=== PATIENT | male | born 1945 | race Caucasian/White ===

== ENCOUNTER 2017-08-17 15:05 | Emergency (ER) | payer OTHER ==
[2017-08-17 15:41] VITALS: BP 159/101
--- NOTE | 2017-08-17 17:00 | UC ---
Shoulder Pain HPI - HPI Summary HPI Summary: Pt reports that he slipped this morning in the bathroom and fell from standing and hit left shoulder on toilet. Pt denies hitting head or FOOSH. - History of Current Complaint Chief Complaint: UCUpperExtremity Stated Complaint: LEFT SHOULDER INJURY PT FELL Time Seen by Provider: 08/17/17 16:13 Hx Obtained From: Patient Onset/Duration: Sudden Onset, Worse Since - onset Timing: Constant Severity Initially: Mild Severity Currently: Mild Location Of Pain: Is Discrete @ - left shoulder Character: Dull, Aching, Stiffness Aggravating Factor(s): Movement Alleviating Factor(s): Rest Associated Signs And Symptoms: Positive: Negative Related History: Dominant Hand Right - Risk Factors Non-Orthopedic Risk Factor: Negative DVT Risk Factors: Negative Septic Arthritis Risk Factor: Negative - Allergies/Home Medications Allergies/Adverse Reactions: Allergies Allergy/AdvReac Type Severity Reaction Status Date / Time No Known Allergies Allergy Verified 08/17/17 15:41 PMH/Surg Hx/FS Hx/Imm Hx Previously Healthy: Yes Endocrine History: Hypothyroidism Cardiovascular History: Cardiac Disease Other History Of: Anticoagulant Therapy - Aspirin and Plavix. Negative For: HIV, Hepatitis B, Hepatitis C - Surgical History Surgical History: Yes Surgery Procedure, Year, and Place: Appendectomy, 1967, [place]. cardiac stent placements. partiod gland surgery - Family History Known Family History: Positive: Cardiac Disease, Hypertension - Social History Occupation: Retired Lives: With Family Alcohol Use: Occasionally Substance Use Type: None Smoking Status (MU): Former Smoker Have You Smoked in the Last Year: No When Did the Patient Quit Smoking/Using Tobacco: 40 years ago - Immunization History Most Recent Tetanus Shot: unknown Review of Systems Constitutional: Negative Skin: Negative Eyes: Negative ENT: Negative Respiratory: Negative Cardiovascular: Negative Gastrointestinal: Negative Genitourinary: Negative Motor: Decreased ROM - left shoulder secondary to pain Neurovascular: Negative Musculoskeletal: Arthralgia - left shoulder, Decreased ROM - left shoulder, Myalgia - left shoulder Neurological: Negative Psychological: Negative Is Patient Immunocompromised?: No All Other Systems Reviewed And Are Negative: Yes Physical Exam Triage Information Reviewed: Yes Vital Signs: Initial Vital Signs Temp 98.5 F 08/17/17 15:36 Pulse 68 08/17/17 15:36 Resp 16 08/17/17 15:36 BP 159/101 08/17/17 15:36 Pulse Ox 98 08/17/17 15:36 Vital Signs Reviewed: Yes Eye Exam: Normal ENT Exam: Normal Neck exam: Normal Respiratory Exam: Normal Cardiovascular Exam: Normal Musculoskeletal Exam: Other Musculoskeletal: Positive: ROM Limited @ - left shoulder secondary to pain, Other: - tenderness AC joint Neurological Exam: Normal Psychological Exam: Normal Skin Exam: Normal Shoulder Course/Dx - Course Course Of Treatment: 3 views of left shoulder demonstrates no fracture. No other bone or joint abnormality is. noted. IMPRESSION: No fracture of the shoulder is noted. - Differential Dx/Diagnosis Differential Diagnosis/HQI/PQRI: Contusion, Fracture (Closed), Strain Provider Diagnoses: left shoulder contusion Discharge - Discharge Plan Condition: Stable Disposition: HOME Prescriptions: traMADol TAB* [Ultram*] 50 mg PO Q6HR PRN #16 tab MDD 4 PRN Reason: Pain Patient Education Materials: Contusion in Adults (ED), Shoulder Pain (ED) Referrals: Ángel Sanders MD [Medical Doctor] - If Needed No Primary Care Phys,NOPCP [Primary Care Provider] - If Needed Additional Instructions: Xray: 3 views of left shoulder demonstrates no fracture. No other bone or joint abnormality is noted.
--- NOTE | 2017-08-17 17:20 | RAD ---
Indication: Left shoulder pain. 3 views of left shoulder demonstrates no fracture. No other bone or joint abnormality is noted. IMPRESSION: No fracture of the shoulder is noted.
== END 2017-08-17 17:32 | disposition home or self-care (01) ==
LOC: UCCORT 15:05
DX: S40.012A Contusion of left shoulder, initial encounter (principal); W01.198A Fall on same level from slipping, tripping and stumbling with subsequent striking against other object, initial encounter; Y92.002 Bathroom of unspecified non-institutional (private) residence as the place of occurrence of the external cause
CPT/HCPCS: 99212; G0463

== ENCOUNTER 2018-04-13 18:03 | Emergency (ER) | payer MEDICARE, BC ==
--- NOTE | 2018-04-13 18:48 | UC ---
UC Dental HPI - HPI Summary HPI Summary: Right upper jaw pain starting about noon, chewing on some peanuts. Worse since then with chewing causing pain to radiate up into the ear and around the lower right ear. - History of Current Complaint Chief Complaint: UCGeneralIllness Stated Complaint: RIGHT SIDE JAW PAIN Time Seen by Provider: 04/13/18 18:27 Hx Obtained From: Patient Onset/Duration: Sudden Onset, Lasting Hours - 6, Still Present Severity: Moderate Pain Intensity: 4 Aggravating Factor(s): Chewing Alleviating Factor(s): Nothing Related History: Swelling - ? parotid swelling. - Allergies/Home Medications Allergies/Adverse Reactions: Allergies Allergy/AdvReac Type Severity Reaction Status Date / Time No Known Allergies Allergy Verified 04/13/18 18:17 PMH/Surg Hx/FS Hx/Imm Hx Other History Of: Anticoagulant Therapy - Aspirin and Plavix. Negative For: HIV, Hepatitis B, Hepatitis C - Surgical History Surgical History: Yes Surgery Procedure, Year, and Place: Appendectomy, 1968, [place]. cardiac stent placements. partiod gland surgery with Dr. Ritchie - Family History Known Family History: Positive: Cardiac Disease, Hypertension - Social History Occupation: Retired Lives: With Family Alcohol Use: Occasionally Substance Use Type: None Smoking Status (MU): Former Smoker Have You Smoked in the Last Year: No When Did the Patient Quit Smoking/Using Tobacco: 40 years ago - Immunization History Most Recent Tetanus Shot: unknown Review of Systems ENT: Ear Ache Is Patient Immunocompromised?: No All Other Systems Reviewed And Are Negative: Yes Physical Exam Triage Information Reviewed: Yes Appearance: Well-Appearing, Well-Nourished, Pain Distress - mild Vital Signs: Initial Vital Signs Temp 98.1 F 04/13/18 18:10 Pulse 70 04/13/18 18:10 Resp 16 04/13/18 18:10 BP 164/91 04/13/18 18:10 Pulse Ox 98 04/13/18 18:10 Vital Signs Reviewed: Yes ENT: Positive: Pharynx normal, TMs normal, Other - Tenderness around the parotid gland up into the right ear and down inferior to the ear. Dental: Negative: Percussion Tenderness @, Gross Decay/Caries @, Dental Fracture @, Abscess @, Cellulitis @ Neck exam: Normal Respiratory Exam: Normal Cardiovascular Exam: Normal Musculoskeletal Exam: Normal Neurological Exam: Normal Psychological Exam: Normal Skin Exam: Normal Dental Complaint Course/Dx - Course Course Of Treatment: Requested F/U with DR. Ritchie - Differential Dx/Diagnosis Differential Diagnosis/Dx: Dental Abscess, Odontogenic Pain, TMJ Syndrome Provider Diagnoses: Acute Parotitis Discharge - Sign-Out/Discharge Documenting (check all that apply): Discharge/Admit/Transfer - Discharge Plan Condition: Stable Disposition: HOME Prescriptions: Amoxicillin/Clavulanate TAB* [Augmentin TAB 875*] 875 mg PO BID #20 tab Patient Education Materials: Sialoadenitis (ED), Amoxicillin/Clavulanate Potassium (By mouth) Referrals: No Primary Care Phys,NOPCP [Primary Care Provider] - Agapito Ritchie MD [Medical Doctor] - Additional Instructions: To prevent the diarrhea from Augmentin (Amox/Clav), take 1 imodium with each antibiotic. - Billing Disposition and Condition Condition: STABLE Disposition: HOME
[2018-04-13] MEDS ORDERED: Amoxicillin/Clavulanate TAB* 875 MG PO ONE (18:51)
[2018-04-13 19:01] VITALS: BP 164/91
== END 2018-04-13 19:00 | disposition home or self-care (01) ==
LOC: UCCORT 18:03
DX: K11.21 Acute sialoadenitis (principal); Z87.891 Personal history of nicotine dependence
CPT/HCPCS: 99212; A9270-GY; G0463

== ENCOUNTER 2019-04-24 16:50 | Emergency (ER) | payer MEDICARE, BC ==
[2019-04-24 17:39] VITALS: BP 160/85
--- NOTE | 2019-04-24 18:37 | UC ---
UC General HPI - HPI Summary HPI Summary: pt is c/o pain and swelling to the inside of his R ankle x 2 weeks. he is a runner which seems to be making it worse. he denies hx of gout, fever and rash. he has had no acute injury. pt went to the [facility] ER about 2 hours ago. he had xrays, was dx with tendinitis and given a single hydrocodone. he states they told him to f/u with his pcp and that they do not write for pain medications anymore. pt came here because"i need something for pain relief". - History of Current Complaint Chief Complaint: UCLowerExtremity Stated Complaint: RT ANKLE COMPLAINT Time Seen by Provider: 04/24/19 18:27 Hx Obtained From: Patient Timing: Constant Pain Intensity: 4 Aggravating: movement Associated Signs & Symptoms: Negative: Fever - Allergy/Home Medications Allergies/Adverse Reactions: Allergies Allergy/AdvReac Type Severity Reaction Status Date / Time No Known Allergies Allergy Verified 04/24/19 17:39 PMH/Surg Hx/FS Hx/Imm Hx Endocrine History: Thyroid Disease Cardiovascular History: Myocardial Infarction Other History Of: Anticoagulant Therapy - Aspirin and Plavix. Negative For: HIV, Hepatitis B, Hepatitis C - Surgical History Surgical History: Yes Surgery Procedure, Year, and Place: Appendectomy, [facility], [place]. cardiac stent placements. parotid gland surgery with Dr. Ritchie - Family History Known Family History: Positive: Cardiac Disease, Hypertension - Social History Lives: With Family Alcohol Use: Occasionally Substance Use Type: None Smoking Status (MU): Former Smoker Have You Smoked in the Last Year: No When Did the Patient Quit Smoking/Using Tobacco: 40 years ago - Immunization History Most Recent Tetanus Shot: unknown Review of Systems All Other Systems Reviewed And Are Negative: No Constitutional: Negative: Fever Skin: Negative: Rash Neurological: Negative: Weakness, Paresthesia, Numbness Physical Exam Triage Information Reviewed: Yes Appearance: Well-Appearing Vital Signs: Initial Vital Signs Temp 97.8 F 04/24/19 17:31 Pulse 66 04/24/19 17:31 Resp 16 04/24/19 17:31 BP 160/85 04/24/19 17:31 Pulse Ox 99 04/24/19 17:31 Vital Signs Reviewed: Yes Eyes: Positive: Conjunctiva Clear Respiratory: Positive: No respiratory distress Cardiovascular: Positive: RRR Musculoskeletal: Positive: Other: - LLE: hip and knee are non tender. Ankle has tenderness over the deltoid ligament. There is also mild swelling over the medial ankle and proximal medial foot. The foot is flat and there is a bunion deformity at the base of the great toe. He has a eversion deformity to the ankle. Rest of foot including the arch are non tender. Toes have gross s/v/m function. no erythema, rash or warmth. Neurological: Positive: Alert Psychological: Positive: Age Appropriate Behavior Skin Exam: Normal Course/Dx - Course Course Of Treatment: [facility] ER was able to look at xray reports and shared degenerative changes great toe and ankle negative. odell applied to R ankle,by this PA. gross s/v/m intact pre and post. - Diagnoses Provider Diagnosis: Flat feet, bilateral, Eversion deformity of right foot, Deltoid (ligament), ankle sprain Discharge - Sign-Out/Discharge Documenting (check all that apply): Patient Departure All imaging exams completed and their final reports reviewed: No Studies - Discharge Plan Condition: Stable Disposition: HOME Prescriptions: HYDROcodone/ACETAMIN 5-325 MG* [Gary 5-325 TAB*] 1 tab PO Q6H PRN #15 tab MDD 4 PRN Reason: Pain Patient Education Materials: Ankle Sprain (ED) Referrals: Noam Jones MD [Medical Doctor] - As Soon As Possible Additional Instructions: ASK TO BE SEEN IN THE [place] OFFICE. USE THE ODELL NEEDED FOR COMFORT. AVOID RUNNING UNTIL YOU ARE CLEARED. get an xray disc/report from the ER visit. - Billing Disposition and Condition Condition: STABLE Disposition: Home
== END 2019-04-24 19:30 | disposition home or self-care (01) ==
LOC: UCCORT 16:50
DX: S93.401A Sprain of unspecified ligament of right ankle, initial encounter (principal); X58.XXXA Exposure to other specified factors, initial encounter; Y92.9 Unspecified place or not applicable; M21.42 Flat foot [pes planus] (acquired), left foot; M21.41 Flat foot [pes planus] (acquired), right foot; M21.071 Valgus deformity, not elsewhere classified, right ankle; M19.071 Primary osteoarthritis, right ankle and foot; Z79.01 Long term (current) use of anticoagulants; Z79.82 Long term (current) use of aspirin; Z95.5 Presence of coronary angioplasty implant and graft; Z87.891 Personal history of nicotine dependence
CPT/HCPCS: 99212; G0463